=== PATIENT | female | born 1975 | race Caucasian/White ===

== ENCOUNTER → 2019-06-28 14:46 | Outpatient (BNVA) | payer OTHER, SELFPAY | PROVIDERS: Family Provider Nurse Practitioner; PCP Nurse Practitioner; Visit Provider Nurse Practitioner Psychiatric/Mental Health | DX: Z79.899 Other long term (current) drug therapy (principal); F31.81 Bipolar II disorder; F43.12 Post-traumatic stress disorder, chronic; F41.1 Generalized anxiety disorder; F17.210 Nicotine dependence, cigarettes, uncomplicated; Z63.4 Disappearance and death of family member | CPT/HCPCS: 80053; 80061; 85025 ==

== ENCOUNTER → 2019-08-10 16:13 | Outpatient (BNVA) | payer BC, SELFPAY | PROVIDERS: Family Provider Nurse Practitioner; PCP Nurse Practitioner; Visit Provider Nurse Practitioner | DX: R50.9 Fever, unspecified (principal) | CPT/HCPCS: 87400 ==

== ENCOUNTER → 2019-10-24 09:23 | Outpatient (BNVA) | payer SELFPAY | PROVIDERS: Family Provider Nurse Practitioner; PCP Nurse Practitioner; Visit Provider Nurse Practitioner | DX: M54.5 Low back pain (principal); M79.605 Pain in left leg | CPT/HCPCS: 81000 ==

== ENCOUNTER → 2019-11-14 10:58 | Outpatient (BNVA) | payer SELFPAY | PROVIDERS: Family Provider Nurse Practitioner; PCP Nurse Practitioner; Visit Provider Nurse Practitioner Psychiatric/Mental Health | DX: F31.81 Bipolar II disorder (principal); F43.12 Post-traumatic stress disorder, chronic; F41.1 Generalized anxiety disorder; F17.210 Nicotine dependence, cigarettes, uncomplicated; Z63.4 Disappearance and death of family member | CPT/HCPCS: 99214 ==

== ENCOUNTER → 2020-02-02 11:33 | Outpatient (BNVA) | payer BC, SELFPAY | PROVIDERS: Family Provider Nurse Practitioner; PCP Nurse Practitioner; Visit Provider Nurse Practitioner Family | DX: Z11.59 Encounter for screening for other viral diseases (principal); J06.9 Acute upper respiratory infection, unspecified | CPT/HCPCS: 87635 ==

== ENCOUNTER → 2020-04-25 11:31 | Outpatient (BNVA) | payer BC, SELFPAY | PROVIDERS: Family Provider Nurse Practitioner; PCP Nurse Practitioner; Visit Provider Nurse Practitioner Family | DX: Z11.59 Encounter for screening for other viral diseases (principal); J98.8 Other specified respiratory disorders | CPT/HCPCS: 87635 ==

== ENCOUNTER → 2021-01-09 14:36 | Outpatient (BNVA) | payer OTHER, SELFPAY | PROVIDERS: Family Provider Nurse Practitioner; PCP Nurse Practitioner; Visit Provider Nurse Practitioner Family | DX: Z20.822 Contact with and (suspected) exposure to COVID-19 (principal); Z11.52 Encounter for screening for COVID-19; Z11.59 Encounter for screening for other viral diseases | CPT/HCPCS: 87635 ==

== ENCOUNTER → 2021-03-28 00:01 | Outpatient (BNVA) | payer OTHER, SELFPAY | PROVIDERS: Family Provider Nurse Practitioner; PCP Nurse Practitioner; Visit Provider Surgery | DX: Z01.812 Encounter for preprocedural laboratory examination (principal); Z20.822 Contact with and (suspected) exposure to COVID-19 | CPT/HCPCS: 87635 ==

== ENCOUNTER 2021-04-03 09:27 | Day surgery (SDC) | payer SELFPAY ==
[2021-03-31 13:47] VITALS: BMI 39.6
[2021-04-03 10:08] VITALS: BP 123/90; PULSE 83; RESP 18; TEMP 36.1; O2SAT 98
[2021-04-03] MEDS: sodium chloride 0.9% 1,000 ML 30 ML IV (10:16)
--- NOTE | 2021-04-03 10:21 | ANES.PREANE2 ---
Pre-Anesthetic Assessment Pre-Anesthetic Assessment: Height/Weight: Height 1.55 m Weight 95.254 kg Temp Pulse Resp BP Pulse Ox 97 F L 83 18 123/90 98 04/03/21 10:08 04/03/21 10:08 04/03/21 10:08 04/03/21 10:08 04/03/21 10:08 Preop Diagnosis: upper gi symptoms Proposed Procedure: Operation Date: 04/03/21 11:15 Proposed Procedures p EGD 18866 K21.9(Not Applicable) - Moshe Rodriguez MD Was Clonidine taken within 24 hours: N/A Last intake: Intake Last Liquid Date 04/02/21 Last Liquid Time 22:00 Last Solid Date 04/02/21 Last Solid Time 19:00 Social: Social History: Tobacco Exam: Pre-Anes Outpt Exam: alert, oriented x 3, clear to auscultation bilaterally and regular rate & rhythm Airway: Submandibular: WNL Cervical ROM: WNL MP: 3 Dentition: False History/ROS: No significant complaints Metabolic: Metabolic: Morbid obesity Comments: BMI 39 Neuropsych: Neuropsych: Anxiety and Bipolar Anesthetic Plan: ASA status: 3 Anesthesia: Anesthesia Evaluation and MAC Risk of > 500 ml blood loss (7ml/kg in children): No Meds/Allergies Current Medications: Current Medications Generic Name Dose Route Start Last Admin Trade Name Freq PRN Reason Stop Dose Admin Sodium Chloride 1,000 mls @ 30 ml s/hr 04/03/21 10:00 04/03/21 10:16 Sodium Chloride 0.9% IV 04/04/21 09:59 30 mls/hr .Q24H LOREN Administration PFSH Anesthesia PFSH: Medical History (Updated 02/26/21 @ 11:12 by Bethany Beckwith) Bipolar II disorder Chronic post-traumatic stress disorder Dyslipidemia Fatigue Gastroesophageal reflux disease Generalized anxiety disorder Psychiatric care Surgical History History of vaginal hysterectomy 2009 S/P appendectomy 2000 S/P cholecystectomy 2000 S/P coronary angiogram 2018 S/P tubal ligation Status post section Family History Other Breast cancer Cervical cancer Diabetes Hypothyroid Lung cancer Ovarian cancer Seizure Social History Quit status (tobacco): not considering quitting Second hand smoke exposure: No Smoking risk assessment/counseling performed?: Yes Alcohol intake: never Desire information about alcohol rehabilitation?: No Counseling given: No Desire information about substance/drug rehabilitation?: No Counseling given: No Caregiver/support person: No Lives independently: Yes Household members: spouse Marital status: Current occupational status: employed Current occupation: [employer] History of recent travel: No Current gender identity: Female Data Anesthesia Cardiac Studies: No Data to Display
--- NOTE | 2021-04-03 11:11 | W.PM.OPSFHP ---
Same Day Surgery H&P Indication for Procedure/HPI DATE OF PROCEDURE: April 03, 2021 CHIEF COMPLAINT/INDICATIONFOR SURGICAL PROCEDURE: egd PREOP DIAGNOSIS: upper gi symptoms PLANNED PROCEDRUE: Operation Date: 04/03/21 11:15 Proposed Procedures p EGD 87733 K21.9(Not Applicable) - Moshe Rordiguez MD Medications/Allergies* Home Medications Medication Instructions Recorded Confirmed Type albuterol sulfate 90 mcg/actuation 90 g INHALATION DAILY 10/24/19 04/03/21 History aerosol inhaler loratadine 10 mg tablet 10 mg PO DAILY 10/24/19 04/03/21 History cholecalciferol (vitamin D3) 1,250 5,000 mcg PO DAILY cap 11/26/20 04/03/21 History mcg (50,000 unit) capsule Allergies/Adverse Reactions Allergy/AdvReac Type Severity Reaction Status Date / Time acetaminophen Allergy ADR-Abdominal Verified 04/03/21 10:01 Pain aspirin Allergy ADR-Abdominal Verified 04/03/21 10:01 Pain codeine Allergy ADR-Abdominal Verified 04/03/21 10:01 Pain egg Allergy ADR-Diarrhe Verified 04/03/21 10:01 a latex Allergy ALGY-Bliste Verified 04/03/21 10:01 r morphine Allergy ADR-Vomitin Verified 04/03/21 10:01 g tramadol Allergy ADR-Vomitin Verified 04/03/21 10:01 g Current Medications: Generic Name Dose Route Start Last Admin Trade Name Freq PRN Reason Stop Dose Admin Sodium Chloride 1,000 mls @ 30 mls/hr 04/03/21 10:00 04/03/21 10:16 Sodium Chloride 0.9% IV 04/04/21 09:59 30 mls/hr .Q24H LOREN Administration Pertinent History/Comorbid Conditions* Medical History (Updated 02/26/21 @ 11:12 by Bethany Beckwith) Bipolar II disorder Chronic post-traumatic stress disorder Dyslipidemia Fatigue Gastroesophageal reflux disease Generalized anxiety disorder Psychiatric care Surgical History (Updated 08/13/19 @ 14:14 by TRISTAN Price) History of vaginal hysterectomy 2009 S/P appendectomy 2001 S/P cholecystectomy 2001 S/P coronary angiogram 2018 S/P tubal ligation Status post section Family History (Updated 08/13/19 @ 14:16 by Glennette R Ann-Marie, TECHNICAL STAFF ASSISTANT-C) Cervical cancer Ovarian cancer Diabetes Hypothyroid Breast cancer Seizure Lung cancer Social History Quit status (tobacco): not considering quitting Second hand smoke exposure: No Smoking risk assessment/counseling performed?: Yes Alcohol intake: never Desire information about alcohol rehabilitation?: No Counseling given: No Desire information about substance/drug rehabilitation?: No Counseling given: No Caregiver/support person: No Lives independently: Yes Household members: spouse Marital status: Current occupational status: employed Current occupation: [employer] History of recent travel: No Current gender identity: Female Pertinent Exam Findings alert, oriented x 3 and regular rate & rhythm Recommendations Surgery/Procedure today Coding Level of Care Code Acute Industrial Pharmacist for Trinh Bales
[2021-04-03 11:50] VITALS: BP 141/91; PULSE 85; RESP 16; TEMP 36.1; O2SAT 99
[2021-04-03 12:06] VITALS: BP 123/92; PULSE 74; RESP 18; O2SAT 97
--- NOTE | 2021-04-03 12:36 | PC.NURSE ---
protonix called to [facility] a40 gena bid #[phone] with 3 refills.
--- NOTE | 2021-04-03 15:29 | ANE.PACU2 ---
Inpatient post-anesthesia follow up: Airway intact: Yes Vital signs: Temperature 97 F Pulse Rate 74 Respiratory Rate 18 Blood Pressure 123/92 Pulse Oximetry 97 Oxygen Delivery Me thod Room Air Oxygen Flow Rate 2 Fraction of Inspir ed Oxygen Hydration adequate: Yes Nausea and vomiting: No Pain level: 1 Mental status: Baseline
== END 2021-04-03 12:35 | disposition home or self-care (01) ==
PROVIDERS: PCP Nurse Practitioner; Visit Provider Surgery
PROC: 0DJ08ZZ Inspection of Upper Intestinal Tract, Via Natural or Artificial Opening Endoscopic (ICD-10-PCS; CPT 43235; principal; 2021-04-03 11:15)
DX: R10.12 Left upper quadrant pain (principal); R11.0 Nausea; K20.90 Esophagitis, unspecified without bleeding; K29.50 Unspecified chronic gastritis without bleeding; E66.01 Morbid (severe) obesity due to excess calories; Z68.39 Body mass index [BMI] 39.0-39.9, adult; E78.5 Hyperlipidemia, unspecified; F17.200 Nicotine dependence, unspecified, uncomplicated; Z80.3 Family history of malignant neoplasm of breast; Z80.8 Family history of malignant neoplasm of other organs or systems
CPT/HCPCS: 43239; 88305; 96360; 96361; J2704; J7030

== ENCOUNTER → 2022-01-09 11:52 | Outpatient (BNVA) | payer SELFPAY | PROVIDERS: PCP Nurse Practitioner; Visit Provider Family Medicine | DX: I10 Essential (primary) hypertension (principal); K21.9 Gastro-esophageal reflux disease without esophagitis; E78.5 Hyperlipidemia, unspecified; R53.83 Other fatigue | CPT/HCPCS: 80053; 80061; 83036; 83721 ==

== ENCOUNTER → 2022-08-24 10:07 | Outpatient (BNVA) | payer OTHER, SELFPAY | PROVIDERS: PCP Family Medicine; Visit Provider Nurse Practitioner | DX: I10 Essential (primary) hypertension (principal); Z79.899 Other long term (current) drug therapy | CPT/HCPCS: 80053; 80061; 83036; 83721; 84439; 84443; 84481; 85025 ==

== ENCOUNTER → 2022-08-26 10:00 | Outpatient (BNVA) | payer OTHER, SELFPAY | PROVIDERS: PCP Family Medicine; Visit Provider Family Medicine | DX: I10 Essential (primary) hypertension (principal); R05.9 Cough, unspecified; F17.210 Nicotine dependence, cigarettes, uncomplicated; M54.50 Low back pain, unspecified; M79.606 Pain in leg, unspecified; M51.37 Other intervertebral disc degeneration, lumbosacral region | CPT/HCPCS: 71046; 72100 ==

== ENCOUNTER 2022-10-13 09:10 | Outpatient (CLI) | payer OTHER, SELFPAY ==
--- NOTE | 2022-10-13 09:20 | MM_ITS ---
WS: [id number] SCREENING DIGITAL BREAST TOMOSYNTHESIS MAMMOGRAM WITH CAD HISTORY: Z12.39 - Encounter for other screening for malignant neoplasm... COMPARISON: None available. Bilateral CC and MLO with tomosynthesis and synthetic mammography submitted. Computer aided detection analyzed. Breast composition: There are scattered areas of fibroglandular density. Asymmetric soft tissue in th e upper outer quadrant of the RIGHT breast. There are additional multiple scattered nodules throughou t the breast which are probably lymph nodes. No calcifications or distortion. MM/[place] [id number] IMPRESSION: BI-RADS: 0-Incomplete: Need additional imaging evaluation FOLLOW UP: Need Additional Imaging RIGHT breast: Spot compression views (CC and MLO). True ML. Ultrasound to follo w if abnormality persists.
== END 2022-10-13 09:11 | disposition home or self-care (01) ==
LOC: RAD 09:14
PROVIDERS: PCP Family Medicine; Visit Provider Nurse Practitioner
DX: Z12.31 Encounter for screening mammogram for malignant neoplasm of breast (principal)
CPT/HCPCS: 77063; 77067; 80053; 80061; 83036; 83721; 84439; 84443; 84481; 85025

== ENCOUNTER → 2022-11-23 07:55 | Outpatient (BNVA) | payer OTHER, SELFPAY | PROVIDERS: PCP Family Medicine; Visit Provider Nurse Practitioner | DX: E78.2 Mixed hyperlipidemia (principal); E11.65 Type 2 diabetes mellitus with hyperglycemia; E55.9 Vitamin D deficiency, unspecified | CPT/HCPCS: 80053; 80061; 82306; 83036; 84443; 85025 ==

== ENCOUNTER 2023-01-04 09:46 | Outpatient (CLI) | payer OTHER, SELFPAY ==
--- NOTE | 2023-01-04 09:54 | MM_ITS ---
WS: [id number] ADDITIONAL VIEWS RIGHT MAMMOGRAM WITH DIGITAL BREAST TOMOSYNTHESIS. RIGHT BREAST ULTRASOUND HISTORY: ABNORMAL MAMMO COMPARISON: 10/13/2022 RIGHT MAMMOGRAM: Spot compression views and true ML with digital breast tomosynthesis and SM. Patchy asymmetry persists in the upper outer quadrant. There is an additional 6 mm mass just anterior to the asymmetry which may be a lymph node. Ultrasound to follow. RIGHT BREAST ULTRASOUND 2-D and color Doppler imaging submitted. Patchy density in the upper outer quadrant of the right breast at 10:00 is identified. This area lena ures 17 x 13 mm. There are small scattered cysts contained within the mixed echogenetic asymmetry. Fa vor this is benign and I suspect this is benign fibrocystic disease. There is an additional hypoechoi c area which is probably a lymph node at 10:00, 1 cm from the nipple measuring 6 x 9 x 4 mm IMPRESSION: MM/[place] [id number] BI-RADS: 3-Probably Benign FOLLOW UP: 6 Month Follow-up Recommend right breast ultrasound follow-up in 6 months to reevaluate the patch y asymmetries in the upper outer quadrant of the right breast. Favor these are benign findings. As there are no long-term prior studies for comparison 6-month follow-up recommended.
== END 2023-01-04 09:47 | disposition home or self-care (01) ==
PROVIDERS: PCP Family Medicine; Visit Provider Nurse Practitioner
DX: R92.8 Other abnormal and inconclusive findings on diagnostic imaging of breast (principal); N64.89 Other specified disorders of breast
CPT/HCPCS: 76642; 77061; G0279

== ENCOUNTER → 2023-03-02 11:42 | Outpatient (BNVA) | payer OTHER, SELFPAY | PROVIDERS: PCP Family Medicine; Visit Provider Nurse Practitioner | DX: I10 Essential (primary) hypertension | CPT/HCPCS: 80053 ==

== ENCOUNTER → 2023-05-26 11:18 | Outpatient (BNVA) | payer OTHER, SELFPAY | PROVIDERS: PCP Family Medicine; Visit Provider Nurse Practitioner | DX: E11.65 Type 2 diabetes mellitus with hyperglycemia (principal); E55.9 Vitamin D deficiency, unspecified | CPT/HCPCS: 80053; 80061; 82306; 83036; 84443 ==

== ENCOUNTER 2023-07-27 14:26 | Outpatient (CLI) | payer OTHER, SELFPAY ==
--- NOTE | 2023-07-27 15:00 | US_ITS ---
WS: [id number] ULTRASOUND RIGHT BREAST HISTORY: Follow-up complex cystic mass upper outer quadrant 10:00. COMPARISON: 01/04/2023, 10/13/2022 TECHNIQUE: 2-D and Doppler. Reidentified is ill-defined cluster of cysts which are complex cysts in the RIGHT breast at 10:00, 6 cm from the nipple. The entire collection measures 2.0 x 1.0 x 1.6 cm. There is no increased vascular ity. No interval change in size. IMPRESSION: US/US breast RT limited* [id number] BI-RADS: 3-Probably Benign FOLLOW-UP: 6 Month Follow-up Patient to return in 6 months for diagnostic mammogram. At that time additional imaging and ultrasound evaluation of this cluster of cysts in the RIGHT breast should be performed.
== END 2023-07-27 14:27 | disposition home or self-care (01) ==
LOC: RAD 14:29
PROVIDERS: Visit Provider Nurse Practitioner
DX: N60.01 Solitary cyst of right breast (principal)
CPT/HCPCS: 76642

== ENCOUNTER → 2023-08-23 08:59 | Outpatient (BNVA) | payer OTHER, SELFPAY | PROVIDERS: PCP Nurse Practitioner; Visit Provider Nurse Practitioner | DX: L98.9 Disorder of the skin and subcutaneous tissue, unspecified (principal) | CPT/HCPCS: 88305 ==

== ENCOUNTER 2023-11-17 12:44 | Outpatient (CLI) | payer OTHER, SELFPAY ==
--- NOTE | 2023-11-17 12:51 | XR_ITS ---
WS: [id number] Exam: XR lumbar spine 2-3V* [id number] Date/Time of Exam: 11/17/2023 12:59 PM Reason For Exam: M54.9 - Dorsalgia, unspecified Comparison 08/26/2022. Degenerative narrowing of the L5-S1 disc. Mild degenerative anterolisthesis of L4 on L5 of about 5 mm . The remaining discs are preserved. Minimal spondylosis at all levels. Posterior elements are unrema rkable. Slight dextroscoliosis. XR/XR lumbar spine 2-3V* [id number] IMPRESSION: 1. Degenerative disc change and mild degenerative anterolisthesis of L5 on S1 s econdary to facet DJD. Very slight dextroscoliosis.
== END 2023-11-17 12:45 | disposition home or self-care (01) ==
LOC: RAD 12:45
PROVIDERS: PCP Nurse Practitioner; Visit Provider Nurse Practitioner Family
DX: M51.36 Other intervertebral disc degeneration, lumbar region (principal); M54.9 Dorsalgia, unspecified; M54.50 Low back pain, unspecified
CPT/HCPCS: 72100

== ENCOUNTER 2024-01-11 11:10 | Emergency (ER) | payer OTHER, SELFPAY ==
[2024-01-11 11:13] VITALS: BP 180/152; PULSE 100; RESP 24; TEMP 36.5; O2SAT 100
--- NOTE | 2024-01-11 11:22 | ECG_ITS ---
[facility] Test Date: 2024-01-11 Pat Name: Debbie De La Cruz Department: Room: Gender: Female Data Support Analyst: : 1975 Requested By: Jesús Newton Order Number: [id number] Tierney MD: Zarina Hoff M.D. Measurements Intervals [place] Rate: 81 P: 36 WA: 165 QRS: 14 QRSD: 90 T: 58 QT: 376 QTc: 439 Interpretive Statements SINUS RHYTHM Compared to ECG 03/21/2018 12:29:49 Sinus bradycardia no longer present Electronically Signed On 01-11-2024 23:32:02 CDT by Zarina Hoff M.D. [id number]
--- NOTE | 2024-01-11 11:22 | XRR_ITS ---
PROCEDURE INFORMATION: Exam: XR Chest Exam date and time: 01/11/2024 11:27 AM Age: 48 years old Clinical indication: Cough and dyspnea; Patient HX: Lt. Abd pain; Additional info: Dyspnea/cough TECHNIQUE: Imaging protocol: Radiologic exam of the chest. Views: 1 view. COMPARISON: CR XR chest 2V* [id number] 08/26/2022 9:59 AM FINDINGS: Lungs: No infiltrate or edema. Pleural spaces: Unremarkable. No pleural effusion. No pneumothorax. Heart/Mediastinum: Prominent lymph node right hilar region which has been stable comparison to 2019 radiographs. Bones/joints: Unremarkable. XR/XR chest 1V portable [id number] IMPRESSION: No acute findings.
--- NOTE | 2024-01-11 11:36 | W.ED.ABDPA2 ---
HPI - Abdominal Pain General: Chief Complaint: Abdominal Pain Stated Complaint: n/v, left abd pain Time Seen by Provider: 01/11/24 11:21 History of Present Illness: 48-year-old female presents emergency room with left-sided abdominal pain with nausea and vomiting. Started 3 days ago. Also complaining of foul-smelling urine. Severely constipated. No hematochezia or melena. No previous colonoscopy. She was seen this morning by her midlevel she said it reported she had rather foul-smelling urine and midlevel told her should have bladder infection with because she was having nausea and vomiting discharged her earlier advised her to come to the emergency room. Associated Symptoms: Denies chills, dysuria and fever(s) Related Data Home Medications Medication Instructions Recorded Confirmed albuterol sulfate 90 mcg/actuation 90 g inhalation DAILY PRN 10/24/19 01/11/24 aerosol inhaler Shortness Of Breath metoprolol succinate 25 mg 25 mg PO QPM 01/11/24 01/11/24 tablet,extended release 24 hr quetiapine 300 mg tablet (Seroquel) 300 mg PO QAM 01/11/24 01/11/24 Previous Rx's Medication Instructions Recorded pen needle, diabetic 33 gauge x #100 ea 05/26/23 quetiapine 50 mg tablet (Seroquel) 50 mg PO BID PRN severe 10/21/23 anxiety/agitation #60 tabs diltiazem HCl 120 mg 120 mg PO QAM #90 caps 12/07/23 capsule,extended release 24 hr isosorbide mononitrate 10 mg tablet 10 mg PO DAILY #90 tabs 12/07/23 cetirizine 10 mg tablet (Zyrtec) 10 mg PO DAILY #30 tabs 12/14/23 cyclobenzaprine 10 mg tablet 10 mg PO BID PRN muscle spasm #60 12/14/23 tabs fenofibrate nanocrystallized 145 145 mg PO DAILY #30 tabs 12/14/23 mg tablet (Tricor) fluticasone propionate 50 2 spray intranasal DAILY OTC #16 12/14/23 mcg/actuation nasal grams spray,suspension (Flonase Allergy Relief) liraglutide 0.6 mg/0.1 mL (18 mg/3 0.6 mg (0.1 mL) SUBCUT DAILY #9 mL 12/14/23 mL) subcutaneous pen injector (Victoza 3-Calin) metformin 500 mg tablet,extended 1,000 mg (2 x 500 mg) PO DAILY #60 12/14/23 release 24 hr tabs pantoprazole 40 mg tablet,delayed 40 mg PO DAILY #30 tabs 12/14/23 release zonisamide 100 mg capsule 100 mg PO BID #60 caps 12/14/23 (Zonegran) mometasone-formoterol HFA 100 2 puff inhalation Q12H #13 grams 12/15/23 mcg-5 mcg/actuation aerosol inhaler (Dulera) valsartan 40 mg tablet (Diovan) 40 mg PO DAILY #30 tabs 12/15/23 cyproheptadine 4 mg tablet 8 mg (2 x 4 mg) PO BEDTIME #60 tabs 12/16/23 gabapentin 300 mg capsule 300 mg PO TID #90 caps 12/16/23 quetiapine 400 mg tablet (Seroquel) 400 mg PO BEDTIME #30 tabs 12/16/23 cefdinir 300 mg capsule 300 mg PO BID #14 caps 01/11/24 ciprofloxacin HCl 500 mg tablet 500 mg PO BID #20 tabs 01/11/24 lactulose 20 gram/30 mL oral 20 g (30 mL) PO Q2H 24 hours #360 01/11/24 solution mL ondansetron HCl 4 mg tablet 4 mg PO Q6H PRN nausea and 01/11/24 vomiting #20 tabs phenazopyridine 200 mg tablet 200 mg PO TID PRN pain #6 tabs 01/11/24 (Pyridium) polyethylene glycol 3350 17 gram 17 g PO DAILY #100 ea 01/11/24 oral powder packet (Miralax) Allergies Allergy/AdvReac Type Severity Reaction Status Date / Time acetaminophen Allergy ADR-Abdominal Verified 01/11/24 09:38 Pain aspirin Allergy ADR-Abdominal Verified 01/11/24 09:38 Pain codeine Allergy ADR-Abdominal Verified 01/11/24 09:38 Pain egg Allergy ADR-Diarrhe Verified 01/11/24 09:38 a latex Allergy ALGY-Bliste Verified 01/11/24 09:38 r morphine Allergy ADR-Vomitin Verified 01/11/24 09:38 g tramadol Allergy ADR-Vomitin Verified 01/11/24 09:38 g Review of Systems Const: Denies: fever(s) or chills Card: Denies: chest pain Resp: Denies: dyspnea GI: Denies: abdominal pain : Denies: dysuria, urinary frequency or urinary urgency Musc: Denies: neck pain or back pain Skin/Breast: Denies: rash PFSH ED PFSH: Medical History Environmental and seasonal allergies Lumbar degenerative disc disease Hyperlipidemia, mixed Diabetes mellitus with hyperglycemia, without long-term current use of insulin Lumbar pain with radiation down leg Psychiatric care Gastroesophageal reflux disease Dyslipidemia Fatigue Generalized anxiety disorder Chronic post-traumatic stress disorder Bipolar II disorder Surgical History H/O esophagogastroduodenoscopy (04/03/21) History of vaginal hysterectomy 2009 S/P tubal ligation S/P coronary angiogram 2018 S/P appendectomy 2000 S/P cholecystectomy 2001 Status post section Family History Other Breast cancer Cervical cancer Diabetes Hypothyroidism Lung cancer Ovarian cancer Seizure Social History Smoking and tobacco/nicotine status: current every day tobacco/nicotine user cigarettes Packs smoked per day: 1.5 Years cigarettes smoked: 28 Quit status (tobacco/nicotine): not considering quitting Second hand smoke exposure: No Alcohol intake: never Substance/Drug Use: never Caregiver/support person: No Lives independently: Yes Household members: spouse Marital status: Current occupational status: employed Current occupation: [employer] Do you think of yourself as: Straight/Heterosexual Current gender identity: Female Physical Exam Const: COMMON NORMALS: no acute distress GENERAL APPEARANCE: cooperative and comfortable ORIENTATION/CONSCIOUSNESS: Yes awake, Yes oriented to person, Yes oriented to place and Yes oriented to time HENMT: COMMON NORMALS: normocephalic, atraumatic and hearing grossly normal bilaterally HEAD & SCALP: normocephalic and atraumatic Resp: COMMON NORMALS: normal respiratory effort, No retractions, No use of accessory muscles and clear to auscultation bilaterally AUSCULTATION: clear to auscultation bilaterally Cardio: COMMON NORMALS: regular rate, regular rhythm and No murmurs present (Cardio) RATE: regular rate RHYTHM: regular rhythm GI: COMMON NORMALS: Soft to palpation and No hepatosplenomegaly present AUSCULTATION: Yes normoactive bowel sounds PALPATION: Yes Soft to palpation, No Tenderness to palpation present (GI), No Guarding due to palpation present (GI) and Yes No hepatosplenomegaly present Extremity: COMMON NORMALS: normal to inspection, capillary refill normal, no clubbing, cyanosis or edema, no calf tenderness and no pedal edema Neuro: SENSORIUM/ORIENTATION: Yes oriented to person, Yes oriented to place and Yes oriented to time Skin: COMMON NORMALS: no rashes or lesions noted GENERAL SKIN EXAM: no rashes or lesions noted Course Vital Signs: Vital signs: Vital Signs Temperature 97.7 F 01/11/24 11:13 Pulse Rate 87 01/11/24 13:30 Respiratory Rate 16 01/11/24 13:30 Blood Pressure 134/89 01/11/24 13:30 Pulse Oximetry 100 01/11/24 13:30 Oxygen Delivery Me thod Room Air 01/11/24 13:30 MDM - Abdominal Pain Medical Decision Making Labs and imaging reviewed. No leukocytosis normal electrolytes anion gap normal. Glucose is also normal. Urine shows positive nitrites but only 0-5 white blood cells and 0-5 squamous cells. Has not had any vomiting since she is right. She has been given fluids. CT showed significant constipation which I think is causing a lot of her abdominal discomfort possibly causing her nausea and vomiting as well. I discussed with on-call surgeon Dr. Forman he recommends outpatient colonoscopy given there was no mass cited on the CT. Will discharge patient home she was given a dose of Rocephin here advised to start cefdinir 300 mg 1 twice a day beginning tomorrow. Clear liquid diet lactulose 1 dose every 2 hours until desired results achieved also started on MiraLAX prevent constipation. I think her GLP-1 is probably contributing to her constipation issues. Finally we did give her ondansetron to use as needed for nausea vomiting. Medical Records I reviewed the patient's medical records. Lab Data I reviewed the patient's lab results. 01/11/24 11:50 01/11/24 11:50 Labs/Radiology: Radiology Impressions Chest X-Ray 01/11/24 11:22 IMPRESSION: No acute findings. Abdomen/Pelvis CT 01/11/24 11:44 IMPRESSION: 1. Significant increase in fecal material and inspissated fecal material especially within the cecum and RIGHT colon. No focal obstructing mass is identified. There is a change of caliber in the mid transverse colon of the amount of fecal retention. This may all be related to chronic constipation. Colonoscopy may be of benefit in this patient. 2. Prior appendectomy. 3. Prior cholecystectomy. 4. Hepatic steatosis. 5. No free fluid or ascites. 6. Air in the urinary bladder. Probably due to recent instrumentation. Other causes of air in the urinary bladder include fistula and gas producing organisms. Laboratory Results WBC 10.76 10^3/uL (3.29-11.43) 01/11/24 11:50 RBC 4.83 10^6/uL (3.85-5.65) 01/11/24 11:50 Hgb 14.80 g/dL (11.27-16.99) 01/11/24 11:50 Hct 43.6 % (36-47) 01/11/24 11:50 MCV 90.3 fl (85-98) 01/11/24 11:50 MCH 30.6 pg (27-33) 01/11/24 11:50 MCHC 33.9 g/dL (30-55) 01/11/24 11:50 RDW 13.1 % (12.1-15.1) 01/11/24 11:50 Plt Count 345 10^3/cmm (157-399) 01/11/24 11:50 MPV 9.9 fL (7.4-10.4) 01/11/24 11:50 Neut % (Auto) 73.6 % 01/11/24 11:50 Lymph % (Auto) 17.5 % 01/11/24 11:50 [place] % (Auto) 5.1 % 01/11/24 11:50 Eos % (Auto) 2.4 % 01/11/24 11:50 Baso % (Auto) 1.0 % 01/11/24 11:50 Neut # (Auto) 7.92 10^3/uL (1.8-7.7) H 01/11/24 11:50 Lymph # (Auto) 1.9 10^3/uL (0.8-4.8) 01/11/24 11:50 [place] # (Auto) 0.6 10^3/uL (0.2-0.9) 01/11/24 11:50 Eos # (Auto) 0.3 10^3/uL (0.0-0.8) 01/11/24 11:50 Baso # (Auto) 0.1 10^3/uL (0.0-0.1) 01/11/24 11:50 Nucleated RBC % (auto) 0 % 01/11/24 11:50 Nucleated RBCs # 0.0 /100WBC 01/11/24 11:50 Sodium 140 mmol/L (136-145) 01/11/24 11:50 Potassium 3.8 mmol/L (3.5-5.1) 01/11/24 11:50 Chloride 105 mmol/L (98-107) 01/11/24 11:50 Carbon Dioxide 20 mmol/L (22-29) L 01/11/24 11:50 Anion Gap 18.8 (5-19) 01/11/24 11:50 BUN 13 mg/dL (6-20) 01/11/24 11:50 Creatinine 1.1 mg/dL (0.5-0.9) H 01/11/24 11:50 GFR Calculation 53.5 mL/min (90-130) L 01/11/24 11:50 Glucose 88 mg/dL (65-115) 01/11/24 11:50 Calculated Osmolality 290 mOsm/kg (285-295) 01/11/24 11:50 Calcium 9.5 mg/dL (8.5-10.5) 01/11/24 11:50 Total Bilirubin 0.3 mg/dL (0.15-1.2) 01/11/24 11:50 AST 21 U/L (0-32) 01/11/24 11:50 ALT 17 U/L (0-33) 01/11/24 11:50 Alkaline Phosphatase 42 U/L (35-105) 01/11/24 11:50 Total Protein 8.0 g/dL (6.6-8.7) 01/11/24 11:50 Albumin 4.8 g/dL (3.5-5.2) 01/11/24 11:50 Globulin 3.2 g/dL (1.3-4.6) 01/11/24 11:50 Lipase 54 U/L (13-60) 01/11/24 11:50 Urine Color Yellow (Yellow) 01/11/24 14:58 Urine Appearance Cloudy (CLEAR) A 01/11/24 14:58 Urine pH 8.0 (5-7) A 01/11/24 14:58 Ur Specific [place] 1.022 (1.005-1.030) 01/11/24 14:58 Urine Protein Trace (Negative) A 01/11/24 14:58 Urine Glucose (UA) Negative (Normal) 01/11/24 14:58 Urine Ketones Negative (Negative) 01/11/24 14:58 Urine Blood Negative (Negative) 01/11/24 14:58 Urine Nitrate Positive (Negative) A 01/11/24 14:58 Urine Bilirubin Negative (Negative) 01/11/24 14:58 Urine Urobilinogen 1.0 mg/dL (Negative) 01/11/24 14:58 Ur Leukocyte Esterase Trace (Negative) A 01/11/24 14:58 Urine RBC 0-2 /hpf (0-2) 01/11/24 14:58 Urine WBC 0-5 /hpf (0-5) 01/11/24 14:58 Ur Squamous Epith Cells 0-5 /hpf (0-5) 01/11/24 14:58 Amorphous Sediment Not Reportable 01/11/24 14:58 Urine Bacteria Exceeds /hpf (NONE) 01/11/24 14:58 Hyaline Casts 1.21 /lpf 01/11/24 14:58 All radiology interpretation(s) finalized by discharge Discharge Plan Discharge Patient Disposition: Home Clinical Impression: Constipation, Cystitis Condition: Stable Prescriptions: New cefdinir 300 mg capsule 300 mg PO BID Qty: 14 0RF lactulose 20 gram/30 mL solution 20 g PO Q2H 1 Days Qty: 360 0RF Rx Instructions: until desired laxative effect Miralax 17 gram powder in packet 17 g PO DAILY Qty: 100 0RF ondansetron HCl 4 mg tablet 4 mg PO Q6H PRN (Reason: nausea and vomiting) Qty: 20 0RF No Action albuterol sulfate 90 mcg/actuation HFA aerosol inhaler 90 g INHALATION DAILY PRN (Reason: Shortness Of Breath) (DME) pen needle, diabetic 33 gauge x 5/32 needle See Rx Instructions .ROUTE .MEDSUPPLY Qty: 100 5RF Rx Instructions: 1 time day zonisamide [Zonegran] 100 mg capsule 100 mg PO BID Qty: 60 2RF cyclobenzaprine 10 mg tablet 10 mg PO BID PRN (Reason: muscle spasm) Qty: 60 2RF cetirizine [Zyrtec] 10 mg tablet 10 mg PO DAILY Qty: 30 2RF fenofibrate nanocrystallized [Tricor] 145 mg tablet 145 mg PO DAILY Qty: 30 2RF fluticasone propionate [Flonase Allergy Relief] 50 mcg/actuation spray,suspension 2 spray INTRANASAL DAILY Qty: 16 0RF Rx Instructions: administer into each nostril liraglutide [Victoza 3-Calin] 0.6 mg/0.1 mL (18 mg/3 mL) pen injector 0.6 mg SUBCUT DAILY Qty: 9 2RF metformin 500 mg tablet extended release 24 hr 1,000 mg PO DAILY Qty: 60 5RF pantoprazole 40 mg tablet,delayed release (DR/EC) 40 mg PO DAILY Qty: 30 5RF valsartan [Diovan] 40 mg tablet 40 mg PO DAILY Qty: 30 2RF Dulera 100-5 mcg/actuation HFA aerosol inhaler 2 puff inhalation Q12H Qty: 13 5RF quetiapine [Seroquel] 50 mg tablet 50 mg PO BID PRN (Reason: severe anxiety/agitation) Qty: 60 6RF gabapentin 300 mg capsule 300 mg PO TID Qty: 90 6RF quetiapine [Seroquel] 400 mg tablet 400 mg PO BEDTIME Qty: 30 6RF cyproheptadine 4 mg tablet 8 mg PO BEDTIME Qty: 60 6RF ciprofloxacin HCl 500 mg tablet 500 mg PO BID Qty: 20 0RF phenazopyridine [Pyridium] 200 mg tablet 200 mg PO TID PRN (Reason: pain) Qty: 6 0RF diltiazem HCl 120 mg capsule,extended release 24hr 120 mg PO QAM Qty: 90 1RF isosorbide mononitrate 10 mg tablet 10 mg PO DAILY Qty: 90 3RF Seroquel 300 mg tablet 300 mg PO QAM metoprolol succinate 25 mg tablet extended release 24 hr 25 mg PO QPM Discharge Orders: Discharge ED (Routine); Ordered 01/11/24 Ordered By: Jesús Harris Referrals: Sydnee Jacobsen, CONTENT EDITOR-C [Primary Care Provider] - Discharge Diet: Clear Liquid Discharge Activity: Increase activity as tolerated Patient Instructions: Constipation (ED), Urinary Tract Infection in Women (ED), Opioid Safety, Pain Management Activity Restrictions/Additional Instructions: Thank you for choosing [facility] for your healthcare needs today. It is very important that you follow up as instructed or that you return to the Emergency Department should you have concerns or if your condition changes or worsens in any way. You are seen emergency room with complaint of abdominal pain CT of the abdomen showed significant amounts of constipation but did not show any other acute findings. Urine did show signs of an infection. You are given a single dose of ceftriaxone here recommend starting the cefdinir tomorrow 300 mg twice a day for 7 days. Also recommend that you start lactulose use 1 dose every 2 hours until desired results achieved to relieve your constipation. Recommend that you have a colonoscopy done to evaluate for the constipation. Case management make arrangements for you to follow-up with general surgery to have a colonoscopy completed. Coding Level of Care Code ED Learning Support Specialist for Trinh Bales
--- NOTE | 2024-01-11 11:44 | CT_ITS ---
WS: [id number] CT ABDOMEN AND PELVIS NONCONTRAST HISTORY: Abdominal pain TECHNIQUE: Imaging performed through the abdomen and pelvis. Coronal and sagittal reformats are submi tted. All CT scans at [facility] use at least one of these dose optimization techniques: auto mated exposure control; mA and/or kV adjustment per patient size (includes targeted exams where dose is matched to clinical indication); or iterative reconstruction. DLP: 717.13 mGy.cm COMPARISON: 08/10/2016 Lower thorax: Lung bases are clear. Visualized heart is normal. No hiatal hernia. Liver: Hepatic steatosis. Mildly enlarged liver. Gallbladder: Prior cholecystectomy. No bile duct dilatation. Pancreas: Normal size and attenuation. Normal pancreatic duct. No pancreatitis or mass. Spleen: Normal. Adrenal glands: Normal. No mass. Right kidney: Normal size kidney with no mass or hydronephrosis. Left kidney: Normal size kidney with no mass or hydronephrosis. Aorta: Normal abdominal aorta, no aneurysm or atherosclerosis. No free fluid, intraperitoneal air or significant lymphadenopathy. GI tract: Nondistended stomach. No small bowel obstruction. Increasing with fecal material in the RIG HT colon. Cecum is deep within the pelvis and is changed position slightly and is more towards the mi dline on the prior study. Constipation. The RIGHT colon to the mid hepatic flexure is markedly disten ded with fecal material. The distal colon is more normal caliber. No obstructing lesion is identified by CT. Abdominal wall: Negative. No hernia. Pelvis: No free fluid. No adenopathy. Small amount of air in the urinary bladder from recent catheter ization or instrumentation most likely. Otherwise fistula or gas producing organisms. Osseous structures: Unremarkable. CT/CT abdomen pelvis wo con [id number] IMPRESSION: 1. Significant increase in fecal material and inspissated fecal material espec ially within the cecum and RIGHT colon. No focal obstructing mass is identified . There is a change of caliber in the mid transverse colon of the amount of fec al retention. This may all be related to chronic constipation. Colonoscopy may be of benefit in this patient. 2. Prior appendectomy. 3. Prior cholecystectomy. 4. Hepatic steatosis. 5. No free fluid or ascites. 6. Air in the urinary bladder. Probably due to recent instrumentation. Other c auses of air in the urinary bladder include fistula and gas producing organisms .
[2024-01-11 12:02] LABS: Basophils # 0.1 10^3/uL (0.0-0.1); Eosinophils # 0.3 10^3/uL (0.0-0.8); Eosinophils % 2.4 %; Hematocrit 43.6 % (36-47); Lymphocytes # 1.9 10^3/uL (0.8-4.8); Lymphocytes % 17.5 %; Mean Corpuscular HGB Conc 33.9 g/dL (30-55); Mean Corpuscular Hemoglobin 30.6 pg (27-33); Mean Corpuscular Volume 90.3 fl (85-98); Mean Platelet Volume 9.9 fL (7.4-10.4); Monocytes # 0.6 10^3/uL (0.2-0.9); Monocytes % 5.1 %; Neutrophils # 7.92 10^3/uL (1.8-7.7); Neutrophils % 73.6 %; Nucleated Red Blood Cells % 0 %; Platelet Count 345 10^3/cmm (157-399); Red Blood Count 4.83 10^6/uL (3.85-5.65); Red Cell Distribution Width 13.1 % (12.1-15.1); White Blood Count 10.76 10^3/uL (3.29-11.43)
[2024-01-11 12:23] LABS: Alanine Aminotransferase 17 U/L (0-33); Albumin Level 4.8 g/dL (3.5-5.2); Alkaline Phosphatase 42 U/L (35-105); Anion Gap 18.8 (5-19); Aspartate Amino Transferase 21 U/L (0-32); Blood Urea Nitrogen 13 mg/dL (6-20); Calcium 9.5 mg/dL (8.5-10.5); Carbon Dioxide 20 mmol/L (22-29); Chloride 105 mmol/L (98-107); Creatinine Clr Calc Pharmacy 62.3579; Globulin 3.2 g/dL (1.3-4.6); Glomerular Filtration Rate 53.5 mL/min (90-130); Glucose 88 mg/dL (65-115); Lipase 54 U/L (13-60); Osmolality Calculated 290 mOsm/kg (285-295); Potassium 3.8 mmol/L (3.5-5.1); Sodium 140 mmol/L (136-145); Total Bilirubin 0.3 mg/dL (0.15-1.2)
[2024-01-11] MEDS: ondansetron 2 mg/ML SDV 2 mL 4 MG IVP (12:53)
[2024-01-11] MEDS: morphine 4 mg/mL SDV 1 mL IVP (12:53)
[2024-01-11] MEDS: sodium chloride 0.9% 1,000 ML 999 ML IV (12:54)
[2024-01-11 13:01] VITALS: BP 137/92; PULSE 94; RESP 18; O2SAT 95
[2024-01-11 13:30] VITALS: BP 134/89; PULSE 87; RESP 16; O2SAT 100
[2024-01-11 15:21] LABS: Charge for UA Resulting for Rev
[2024-01-11 15:24] LABS: Bilirubin Urine Negative (Negative); Blood Urine Negative (Negative); Glucose Urine UA Negative (Normal); Ketones Urine Negative (Negative); Leukocyte Esterase Urine Trace (Negative); Nitrate Urine Positive (Negative); Protein Urine Trace (Negative); Specific Gravity, Urine 1.022 (1.005-1.030); Urine Appearance Cloudy (CLEAR); Urine Color Yellow (Yellow)
[2024-01-11 15:29] LABS: Bacteria Urine EXCEEDS /hpf; Hyaline Casts Urine 1.21 /lpf; RBC Urine 0-2 /hpf (0-2); Squamous Epithelial Cell Urine 0-5 /hpf (0-5); WBC Urine 0-5 /hpf (0-5)
[2024-01-11 15:38] LABS: Add Urine Culture? Yes
[2024-01-11] MEDS: cefTRIAXone 1,000 mg SDV 1000 MG IVP (16:53)
[2024-01-11 17:01] VITALS: BP 134/92; PULSE 89; RESP 16; O2SAT 100
--- NOTE | 2024-01-12 09:08 | DCPLANNER ---
Message sent to General Surgery for follow up-
== END 2024-01-11 17:07 | disposition home or self-care (01) ==
PROVIDERS: Emergency Provider Family Medicine; PCP Nurse Practitioner
DX: K59.00 Constipation, unspecified (principal); N30.90 Cystitis, unspecified without hematuria; Z79.85 Long-term (current) use of injectable non-insulin antidiabetic drugs; Z79.84 Long term (current) use of oral hypoglycemic drugs; F17.210 Nicotine dependence, cigarettes, uncomplicated; E78.2 Mixed hyperlipidemia; E11.9 Type 2 diabetes mellitus without complications; E78.5 Hyperlipidemia, unspecified
CPT/HCPCS: 36415; 71045; 74176; 80053; 81000; 81003; 81015; 83690; 85025; 87077; 87086; 87184; 87186; 93005; 96374; 96375; 99285; J0696; J2270; J2405; J7030

== ENCOUNTER → 2024-01-26 15:14 | Outpatient (BNVA) | payer OTHER, SELFPAY | PROVIDERS: PCP Nurse Practitioner; Visit Provider Nurse Practitioner | DX: E11.65 Type 2 diabetes mellitus with hyperglycemia (principal) | CPT/HCPCS: 81000 ==

== ENCOUNTER → 2024-03-27 15:17 | Outpatient (BNVA) | payer BC, SELFPAY | PROVIDERS: PCP Nurse Practitioner; Visit Provider Nurse Practitioner Family | DX: M25.562 Pain in left knee (principal) | CPT/HCPCS: 73562 ==

== ENCOUNTER 2024-04-12 11:57 | Day surgery (SDC) | payer BC, SELFPAY ==
[2024-04-12 12:50] VITALS: BP 148/98; PULSE 88; RESP 16; TEMP 36.7; O2SAT 97; BMI 36.2
--- NOTE | 2024-04-12 13:11 | P.ANESASSM_ITS ---
Pre-Anesthetic Assessment Height/Weight: Height 1.55 m Weight 87.09 kg Temp Pulse Resp BP Pulse Ox O2 Del Method 98.0 F 88 16 148/98 97 Room Air 04/12/24 12:50 04/12/24 12:50 04/12/24 12:50 04/12/24 12:50 04/12/24 12:50 04/12/24 12:50 Preop Diagnosis: gerd, abdominal pain Operation Date: 04/12/24 13:15 Proposed Procedures p EGD 61947, 16172, G0105, K21.9, R10.9, K92.2(Not Applicable) - Ian Forman DO s Colonoscopy(Not Applicable) - Ian Forman DO Familial anesthetic complications: none Was Beta Brian taken within 24 hours: Yes Was Clonidine taken within 24 hours: N/A Last intake: Intake Last Liquid Date 04/12/24 Last Liquid Time 06:00 Last Solid Date 04/10/24 Last Solid Time 19:30 Social Tobacco (2ppd, smoked at 6am this morning) and No alcohol Exam alert and oriented x 3 Airway Submandibular: within normal limits Cervical ROM: within normal limits Pulmonary Asthma, Chronic Obstructive Pulmonary Disease and Sleep Apnea CV/HEM Hypertension Chronic Renal Insufficiency Hepatic Cirrhosis GI Gastroesophageal Reflux Disease Metabolic Diabetes Mellitus, Hyperlipidemia and Morbid Obesity Musc/[facility] Fibromyalgia, Lower Back Pain and Osteoarthritis/DJD Neuropsych Anxiety and Bipolar PTSD Anesthetic Plan ASA status: 3 Anesthesia: Anesthesia Evaluation and MAC Risk of > 500 ml blood loss (7ml/kg in children): No Medications/Allergies Home Medications Medication Instructions Recorded Confirmed Last Taken Type albuterol sulfate 90 mcg/actuation 90 g inhalation DAILY PRN 10/24/19 04/12/24 04/11/24 History aerosol inhaler Shortness Of Breath pen needle, diabetic 33 gauge x #100 ea 05/26/23 04/10/24 Unknown Rx cetirizine 10 mg tablet (Zyrtec) 10 mg PO DAILY #30 tabs 12/14/23 04/12/24 04/10/24 Rx cyclobenzaprine 10 mg tablet 10 mg PO BID PRN muscle spasm #60 12/14/23 04/12/24 04/10/24 Rx tabs fluticasone propionate 50 2 spray intranasal DAILY OTC #16 12/14/23 04/12/24 04/12/24 Rx mcg/actuation nasal grams spray,suspension (Flonase Allergy Relief) metformin 500 mg tablet,extended 1,000 mg (2 x 500 mg) PO DAILY #60 12/14/23 04/12/24 04/11/24 09:00 Rx release 24 hr tabs pantoprazole 40 mg tablet,delayed 40 mg PO DAILY #30 tabs 12/14/23 04/10/24 04/10/24 Rx release mometasone-formoterol HFA 100 2 puff inhalation Q12H #13 grams 12/15/23 04/10/24 04/10/24 Rx mcg-5 mcg/actuation aerosol inhaler (Dulera) valsartan 40 mg tablet (Diovan) 40 mg PO DAILY #30 tabs 12/15/23 04/10/24 04/10/24 Rx gabapentin 300 mg capsule 300 mg PO TID #90 caps 12/16/23 04/12/24 04/12/24 Rx ondansetron HCl 4 mg tablet 4 mg PO Q6H PRN nausea and 01/11/24 04/10/24 Unknown Rx vomiting #20 tabs phenazopyridine 200 mg tablet 200 mg PO TID PRN pain #6 tabs 01/11/24 04/10/24 Unknown Rx (Pyridium) linaclotide 290 mcg capsule 290 mcg PO DAILY 1 month #30 caps 02/21/24 04/12/24 04/12/24 Rx (Linzess) diltiazem HCl 120 mg 120 mg PO QAM #90 caps 03/20/24 04/12/24 04/12/24 Rx capsule,extended release 24 hr isosorbide mononitrate 10 mg tablet 10 mg PO DAILY #90 tabs 03/20/24 04/12/24 04/11/24 Rx metoprolol succinate 25 mg 25 mg PO QPM #90 tabs 03/20/24 04/10/24 04/10/24 Rx tablet,extended release 24 hr prednisone 10 mg tablets in a dose See Rx Instructions PO PER PKG DIR 03/28/24 04/10/24 04/10/24 Rx pack #21 ea fenofibrate nanocrystallized 145 145 mg PO DAILY #30 tabs 03/29/24 04/12/24 04/12/24 Rx mg tablet (Tricor) zonisamide 100 mg capsule 100 mg PO BID #60 caps 03/29/24 04/10/24 Unknown Rx (Zonegran) cyproheptadine 4 mg tablet 8 mg (2 x 4 mg) PO BEDTIME #60 tabs 04/07/24 04/12/24 04/11/24 Rx quetiapine 300 mg tablet (Seroquel) 300 mg PO QAM #30 tabs 04/07/24 04/10/24 04/10/24 Rx quetiapine 400 mg tablet (Seroquel) 400 mg PO BEDTIME #30 tabs 04/07/24 04/10/24 04/10/24 Rx quetiapine 50 mg tablet (Seroquel) 50 mg PO BID PRN severe 04/12/24 Unknown Rx anxiety/agitation #60 tabs Allergies Allergy/AdvReac Type Severity Reaction Status Date / Time codeine Allergy Severe ALGY-Hives Verified 04/07/24 15:21 Opioids - Morphine Analogues Allergy Severe ALGY-Hives Verified 04/07/24 15:21 tramadol Allergy Severe ALGY-Hives Verified 04/07/24 15:21 acetaminophen Allergy ADR-Abdominal Verified 04/07/24 15:21 Pain aspirin Allergy ADR-Abdominal Verified 04/07/24 15:21 Pain egg Allergy ADR-Diarrhe Verified 04/07/24 15:21 a latex Allergy ALGY-Bliste Verified 04/07/24 15:21 r [facility] Anesthesia Medical History Environmental and seasonal allergies Lumbar degenerative disc disease Hyperlipidemia, mixed Diabetes mellitus with hyperglycemia, without long-term current use of insulin Lumbar pain with radiation down leg Psychiatric care Gastroesophageal reflux disease Dyslipidemia Fatigue Generalized anxiety disorder Chronic post-traumatic stress disorder Bipolar II disorder Surgical History H/O esophagogastroduodenoscopy (04/03/21) History of vaginal hysterectomy 2008 S/P tubal ligation S/P coronary angiogram 2018 S/P appendectomy 2000 S/P cholecystectomy 2000 Status post section Family History Other Breast cancer Cervical cancer Diabetes Hypothyroidism Lung cancer Ovarian cancer Seizure Social History Smoking and tobacco/nicotine status: never used tobacco/nicotine Quit status (tobacco/nicotine): not considering quitting Second hand smoke exposure: No Alcohol intake: never Substance/Drug Use: never Caregiver/support person: No Lives independently: Yes Household members: spouse Marital status: Current occupational status: employed Current occupation: [employer] Do you think of yourself as: Straight/Heterosexual Current gender identity: Female Data Anesthesia Cardiac Studies: No Data to Display
[2024-04-12] MEDS: sodium chloride 0.9% 1,000 ML 30 ML IV (13:16)
--- NOTE | 2024-04-12 13:40 | PM.HP ---
Providers/Chief Complaint Primary Care Provider: TRISTAN Price Chief Complaint: K21.9 History of Present Illness Debbie De La Cruz is a 48 year old female Review of Systems General: Reports: 10 or more systems reviewed and unremarkable except in HPI and below Medications/Allergies Home Medications Medication Instructions Recorded Confirmed Last Taken Type albuterol sulfate 90 mcg/actuation 90 g inhalation DAILY PRN 10/24/19 04/12/24 04/11/24 History aerosol inhaler Shortness Of Breath pen needle, diabetic 33 gauge x #100 ea 05/26/23 04/10/24 Unknown Rx cetirizine 10 mg tablet (Zyrtec) 10 mg PO DAILY #30 tabs 12/14/23 04/12/24 04/10/24 Rx cyclobenzaprine 10 mg tablet 10 mg PO BID PRN muscle spasm #60 12/14/23 04/12/24 04/10/24 Rx tabs fluticasone propionate 50 2 spray intranasal DAILY OTC #16 12/14/23 04/12/24 04/12/24 Rx mcg/actuation nasal grams spray,suspension (Flonase Allergy Relief) metformin 500 mg tablet,extended 1,000 mg (2 x 500 mg) PO DAILY #60 12/14/23 04/12/24 04/11/24 09:00 Rx release 24 hr tabs pantoprazole 40 mg tablet,delayed 40 mg PO DAILY #30 tabs 12/14/23 04/10/24 04/10/24 Rx release mometasone-formoterol HFA 100 2 puff inhalation Q12H #13 grams 12/15/23 04/10/24 04/10/24 Rx mcg-5 mcg/actuation aerosol inhaler (Dulera) valsartan 40 mg tablet (Diovan) 40 mg PO DAILY #30 tabs 12/15/23 04/10/24 04/10/24 Rx gabapentin 300 mg capsule 300 mg PO TID #90 caps 12/16/23 04/12/24 04/12/24 Rx ondansetron HCl 4 mg tablet 4 mg PO Q6H PRN nausea and 01/11/24 04/10/24 Unknown Rx vomiting #20 tabs phenazopyridine 200 mg tablet 200 mg PO TID PRN pain #6 tabs 01/11/24 04/10/24 Unknown Rx (Pyridium) linaclotide 290 mcg capsule 290 mcg PO DAILY 1 month #30 caps 02/21/24 04/12/24 04/12/24 Rx (Linzess) diltiazem HCl 120 mg 120 mg PO QAM #90 caps 03/20/24 04/12/24 04/12/24 Rx capsule,extended release 24 hr isosorbide mononitrate 10 mg tablet 10 mg PO DAILY #90 tabs 03/20/24 04/12/24 04/11/24 Rx metoprolol succinate 25 mg 25 mg PO QPM #90 tabs 03/20/24 04/10/24 04/10/24 Rx tablet,extended release 24 hr prednisone 10 mg tablets in a dose See Rx Instructions PO PER PKG DIR 03/28/24 04/10/24 04/10/24 Rx pack #21 ea fenofibrate nanocrystallized 145 145 mg PO DAILY #30 tabs 03/29/24 04/12/24 04/12/24 Rx mg tablet (Tricor) zonisamide 100 mg capsule 100 mg PO BID #60 caps 03/29/24 04/10/24 Unknown Rx (Zonegran) cyproheptadine 4 mg tablet 8 mg (2 x 4 mg) PO BEDTIME #60 tabs 04/07/24 04/12/24 04/11/24 Rx quetiapine 300 mg tablet (Seroquel) 300 mg PO QAM #30 tabs 04/07/24 04/10/24 04/10/24 Rx quetiapine 400 mg tablet (Seroquel) 400 mg PO BEDTIME #30 tabs 04/07/24 04/10/24 04/10/24 Rx quetiapine 50 mg tablet (Seroquel) 50 mg PO BID PRN severe 04/12/24 Unknown Rx anxiety/agitation #60 tabs Allergies Allergy/AdvReac Type Severity Reaction Status Date / Time codeine Allergy Severe ALGY-Hives Verified 04/07/24 15:21 Opioids - Morphine Analogues Allergy Severe ALGY-Hives Verified 04/07/24 15:21 tramadol Allergy Severe ALGY-Hives Verified 04/07/24 15:21 acetaminophen Allergy ADR-Abdominal Verified 04/07/24 15:21 Pain aspirin Allergy ADR-Abdominal Verified 04/07/24 15:21 Pain egg Allergy ADR-Diarrhe Verified 04/07/24 15:21 a latex Allergy ALGY-Bliste Verified 04/07/24 15:21 r PFSH Acute PFSH: Medical History Environmental and seasonal allergies Lumbar degenerative disc disease Hyperlipidemia, mixed Diabetes mellitus with hyperglycemia, without long-term current use of insulin Lumbar pain with radiation down leg Psychiatric care Gastroesophageal reflux disease Dyslipidemia Fatigue Generalized anxiety disorder Chronic post-traumatic stress disorder Bipolar II disorder Surgical History H/O esophagogastroduodenoscopy (04/03/21) History of vaginal hysterectomy 2008 S/P tubal ligation S/P coronary angiogram 2017 S/P appendectomy 2000 S/P cholecystectomy 2001 Status post section Family History Other Breast cancer Cervical cancer Diabetes Hypothyroidism Lung cancer Ovarian cancer Seizure Social History Smoking and tobacco/nicotine status: never used tobacco/nicotine Quit status (tobacco/nicotine): not considering quitting Second hand smoke exposure: No Alcohol intake: never Substance/Drug Use: never Caregiver/support person: No Lives independently: Yes Household members: spouse Marital status: Current occupational status: employed Current occupation: [employer] Do you think of yourself as: Straight/Heterosexual Current gender identity: Female Vitals/I&O/Wt Last Vital Signs Temp 98.0 F 04/12/24 12:50 Pulse 88 04/12/24 12:50 Resp 16 04/12/24 12:50 BP 148/98 04/12/24 12:50 Pulse Ox 97 04/12/24 12:50 O2 Del Method Room Air 04/12/24 12:50 Weight last 48 hrs Weight 192 lb A&P Assessment and plan (1) Gastroesophageal reflux disease: Qualifiers: Esophagitis presence: without esophagitis Qualified Code(s): K21.9 - Gastro-esophageal reflux disease without esophagitis (2) GI bleed: Plan EGD and colonoscopy Attestations Medical Necessity Statement*: Home Coding Level of Care Code Acute Code for Chg Fwd Diagnoses Gastroesophageal reflux disease without esophagitis K21.9 Esophagitis presence: without esophagitis GI bleed K92.2
[2024-04-12 13:47] LABS: Glucose Point of Care 85 mg/dL (70-110)
[2024-04-12 14:08] VITALS: BP 156/114; PULSE 78; RESP 18; TEMP 36.1; O2SAT 95
[2024-04-12 14:23] VITALS: BP 139/97; PULSE 86; RESP 18; O2SAT 98
--- NOTE | 2024-04-12 14:59 | ANE.PACU2 ---
Inpatient post-anesthesia follow up: Airway intact: Yes Vital signs: Temperature 97.0 F Pulse Rate 86 Respiratory Rate 18 Blood Pressure 139/97 Pulse Oximetry 98 Oxygen Delivery Me thod Room Air Oxygen Flow Rate Fraction of Inspir ed Oxygen Hydration adequate: Yes Nausea and vomiting: No Pain level: 1 Mental status: Baseline
== END 2024-04-12 14:45 | disposition home or self-care (01) ==
PROVIDERS: PCP Nurse Practitioner; Visit Provider Surgery
PROC: 0DJ08ZZ Inspection of Upper Intestinal Tract, Via Natural or Artificial Opening Endoscopic (ICD-10-PCS; CPT 43235; principal; 2024-04-12 13:15)
PROC: 0DJD8ZZ Inspection of Lower Intestinal Tract, Via Natural or Artificial Opening Endoscopic (ICD-10-PCS; CPT 45330; 2024-04-12 13:15)
DX: K92.2 Gastrointestinal hemorrhage, unspecified (principal); K21.9 Gastro-esophageal reflux disease without esophagitis; K29.50 Unspecified chronic gastritis without bleeding; F17.210 Nicotine dependence, cigarettes, uncomplicated; J44.9 Chronic obstructive pulmonary disease, unspecified; G47.30 Sleep apnea, unspecified; I10 Essential (primary) hypertension; E78.5 Hyperlipidemia, unspecified; E66.01 Morbid (severe) obesity due to excess calories; Z68.36 Body mass index [BMI] 36.0-36.9, adult; M79.7 Fibromyalgia; E11.65 Type 2 diabetes mellitus with hyperglycemia
CPT/HCPCS: 36416; 43239; 45330; 82962; 88305; 88342; J2704; J7030

== ENCOUNTER → 2024-04-24 15:19 | Outpatient (BNVA) | payer BC, SELFPAY | PROVIDERS: PCP Nurse Practitioner; Visit Provider Specialist | DX: M25.562 Pain in left knee (principal) | CPT/HCPCS: 73560; 73565 ==

== ENCOUNTER 2024-05-03 12:07 | Day surgery (SDC) | payer BC, SELFPAY ==
[2024-05-03 13:05] VITALS: BP 130/85; PULSE 84; RESP 18; TEMP 36.3; O2SAT 96; BMI 34.9
[2024-05-03] MEDS: sodium chloride 0.9% 500 ML 15 ML IV (13:13)
[2024-05-03 13:26] LABS: Glucose Point of Care 81 mg/dL (70-110)
--- NOTE | 2024-05-03 14:15 | ANES.PREANE2 ---
Pre-Anesthetic Assessment Height/Weight: Height 5 ft 2 in Weight 191 lb Temp Pulse Resp BP Pulse Ox O2 Del Method 97.3 F L 84 18 130/85 96 Room Air 05/03/24 13:05 05/03/24 13:05 05/03/24 13:05 05/03/24 13:05 05/03/24 13:05 05/03/24 13:05 Preop Diagnosis: Screening colonoscopy Operation Date: 05/03/24 13:15 Proposed Procedures p Colonoscopy(Not Applicable) - Ian Forman, DO Was Beta Brian taken within 24 hours: N/A Was Clonidine taken within 24 hours: N/A Last intake: Intake Last Liquid Date 05/02/24 Last Liquid Time 22:00 Last Solid Date 04/30/24 Last Solid Time 08:00 Social Tobacco and No alcohol Exam alert, oriented x 3 and regular rate & rhythm Airway Submandibular: within normal limits Cervical ROM: within normal limits Mallampati: Class II Dentition: false Anesthetic Plan ASA status: 3 Anesthesia: MAC Other: No prior issues with anesthesia, field prep on previous colonoscopy Completed bowel prep Current smoker, 2 packs/day COPD and sleep apnea Type 2 diabetes on metformin Hypertension on metoprolol GERD on Protonix Plan for MAC anesthetic Medications/Allergies Home Medications Medication Instructions Recorded Confirmed Last Taken Type albuterol sulfate 90 mcg/actuation 90 g inhalation DAILY PRN 10/24/19 05/01/24 04/28/24 History aerosol inhaler Shortness Of Breath pen needle, diabetic 33 gauge x #100 ea 05/26/23 04/24/24 Unknown Rx cetirizine 10 mg tablet (Zyrtec) 10 mg PO DAILY #30 tabs 12/14/23 05/01/24 05/01/24 Rx fluticasone propionate 50 2 spray intranasal DAILY OTC #16 12/14/23 05/01/24 05/01/24 Rx mcg/actuation nasal grams spray,suspension (Flonase Allergy Relief) metformin 500 mg tablet,extended 1,000 mg (2 x 500 mg) PO DAILY #60 12/14/23 05/01/24 05/01/24 Rx release 24 hr tabs pantoprazole 40 mg tablet,delayed 40 mg PO DAILY #30 tabs 12/14/23 05/01/24 05/01/24 Rx release mometasone-formoterol HFA 100 2 puff inhalation Q12H #13 grams 12/15/23 05/01/24 04/30/24 Rx mcg-5 mcg/actuation aerosol inhaler (Dulera) valsartan 40 mg tablet (Diovan) 40 mg PO DAILY #30 tabs 12/15/23 05/01/24 05/01/24 Rx gabapentin 300 mg capsule 300 mg PO TID #90 caps 12/16/23 05/01/24 05/01/24 Rx ondansetron HCl 4 mg tablet 4 mg PO Q6H PRN nausea and 01/11/24 05/01/24 Unknown Rx vomiting #20 tabs phenazopyridine 200 mg tablet 200 mg PO TID PRN pain #6 tabs 01/11/24 05/01/24 Unknown Rx (Pyridium) linaclotide 290 mcg capsule 290 mcg PO DAILY 1 month #30 caps 02/21/24 05/01/24 05/01/24 Rx (Linzess) diltiazem HCl 120 mg 120 mg PO QAM #90 caps 03/20/24 05/01/24 05/01/24 Rx capsule,extended release 24 hr metoprolol succinate 25 mg 25 mg PO QPM #90 tabs 03/20/24 05/01/24 04/30/24 Rx tablet,extended release 24 hr fenofibrate nanocrystallized 145 145 mg PO DAILY #30 tabs 03/29/24 05/01/24 05/01/24 Rx mg tablet (Tricor) zonisamide 100 mg capsule 100 mg PO BID #60 caps 03/29/24 05/01/24 05/01/24 Rx (Zonegran) cyproheptadine 4 mg tablet 8 mg (2 x 4 mg) PO BEDTIME #60 tabs 04/07/24 05/01/24 04/30/24 Rx quetiapine 300 mg tablet (Seroquel) 300 mg PO QAM #30 tabs 04/07/24 05/01/24 05/01/24 Rx quetiapine 400 mg tablet (Seroquel) 400 mg PO BEDTIME #30 tabs 04/07/24 05/01/24 04/30/24 Rx quetiapine 50 mg tablet (Seroquel) 50 mg PO BID PRN severe 04/12/24 05/01/24 05/01/24 Rx anxiety/agitation #60 tabs amoxicillin 500 mg-potassium 1 tab PO TID 10 days #30 tabs 04/26/24 05/01/24 05/01/24 Rx clavulanate 125 mg tablet (Augmentin) isosorbide mononitrate 10 mg tablet 10 mg PO BEDTIME 05/02/24 05/02/24 04/30/24 History Allergies Allergy/AdvReac Type Severity Reaction Status Date / Time codeine Allergy Severe ALGY-Hives Verified 05/01/24 10:50 Opioids - Morphine Analogues Allergy Severe ALGY-Hives Verified 05/01/24 10:50 tramadol Allergy Severe ALGY-Hives Verified 05/01/24 10:50 acetaminophen Allergy ADR-Abdominal Verified 05/01/24 10:50 Pain aspirin Allergy ADR-Abdominal Verified 05/01/24 10:50 Pain egg Allergy ADR-Diarrhe Verified 05/01/24 10:50 a latex Allergy ALGY-Bliste Verified 05/01/24 10:50 r Current Medications Generic Name Dose Route Start Last Admin Trade Name Freq PRN Reason Stop Dose Admin Sodium Chloride 500 mls @ 15 mls/hr 05/03/24 12:24 05/03/24 13:13 Sodium Chloride 0.9% IV 05/04/24 12:23 15 mls/hr .Q24H PRN Administration COLONOSCOPY FLUIDS PFSH Anesthesia Medical History Environmental and seasonal allergies Lumbar degenerative disc disease Hyperlipidemia, mixed Diabetes mellitus with hyperglycemia, without long-term current use of insulin Lumbar pain with radiation down leg Psychiatric care Gastroesophageal reflux disease Dyslipidemia Fatigue Generalized anxiety disorder Chronic post-traumatic stress disorder Bipolar II disorder Surgical History H/O esophagogastroduodenoscopy (04/03/21) History of vaginal hysterectomy 2009 S/P tubal ligation S/P coronary angiogram 2017 S/P appendectomy 2000 S/P cholecystectomy 2000 Status post section Family History Other Breast cancer Cervical cancer Diabetes Hypothyroidism Lung cancer Ovarian cancer Seizure Social History Smoking and tobacco/nicotine status: never used tobacco/nicotine Quit status (tobacco/nicotine): not considering quitting Second hand smoke exposure: No Alcohol intake: never Substance/Drug Use: never Caregiver/support person: No Lives independently: Yes Household members: spouse Marital status: Current occupational status: employed Current occupation: [employer] Do you think of yourself as: Straight/Heterosexual Current gender identity: Female Data Anesthesia Cardiac Studies: No Data to Display
--- NOTE | 2024-05-03 14:41 | PM.HP ---
Providers/Chief Complaint Primary Care Provider: TRISTAN Price Chief Complaint: K9.22 History of Present Illness Debbie De La Cruz is a 48 year old female Review of Systems General: Reports: 10 or more systems reviewed and unremarkable except in HPI and below Medications/Allergies Home Medications Medication Instructions Recorded Confirmed Last Taken Type albuterol sulfate 90 mcg/actuation 90 g inhalation DAILY PRN 10/24/19 05/01/24 04/28/24 History aerosol inhaler Shortness Of Breath pen needle, diabetic 33 gauge x #100 ea 05/26/23 04/24/24 Unknown Rx cetirizine 10 mg tablet (Zyrtec) 10 mg PO DAILY #30 tabs 12/14/23 05/01/24 05/01/24 Rx fluticasone propionate 50 2 spray intranasal DAILY OTC #16 12/14/23 05/01/24 05/01/24 Rx mcg/actuation nasal grams spray,suspension (Flonase Allergy Relief) metformin 500 mg tablet,extended 1,000 mg (2 x 500 mg) PO DAILY #60 12/14/23 05/01/24 05/01/24 Rx release 24 hr tabs pantoprazole 40 mg tablet,delayed 40 mg PO DAILY #30 tabs 12/14/23 05/01/24 05/01/24 Rx release mometasone-formoterol HFA 100 2 puff inhalation Q12H #13 grams 12/15/23 05/01/24 04/30/24 Rx mcg-5 mcg/actuation aerosol inhaler (Dulera) valsartan 40 mg tablet (Diovan) 40 mg PO DAILY #30 tabs 12/15/23 05/01/24 05/01/24 Rx gabapentin 300 mg capsule 300 mg PO TID #90 caps 12/16/23 05/01/24 05/01/24 Rx ondansetron HCl 4 mg tablet 4 mg PO Q6H PRN nausea and 01/11/24 05/01/24 Unknown Rx vomiting #20 tabs phenazopyridine 200 mg tablet 200 mg PO TID PRN pain #6 tabs 01/11/24 05/01/24 Unknown Rx (Pyridium) linaclotide 290 mcg capsule 290 mcg PO DAILY 1 month #30 caps 02/21/24 05/01/24 05/01/24 Rx (Linzess) diltiazem HCl 120 mg 120 mg PO QAM #90 caps 03/20/24 05/01/24 05/01/24 Rx capsule,extended release 24 hr metoprolol succinate 25 mg 25 mg PO QPM #90 tabs 03/20/24 05/01/24 04/30/24 Rx tablet,extended release 24 hr fenofibrate nanocrystallized 145 145 mg PO DAILY #30 tabs 03/29/24 05/01/24 05/01/24 Rx mg tablet (Tricor) zonisamide 100 mg capsule 100 mg PO BID #60 caps 03/29/24 05/01/24 05/01/24 Rx (Zonegran) cyproheptadine 4 mg tablet 8 mg (2 x 4 mg) PO BEDTIME #60 tabs 04/07/24 05/01/24 04/30/24 Rx quetiapine 300 mg tablet (Seroquel) 300 mg PO QAM #30 tabs 04/07/24 05/01/24 05/01/24 Rx quetiapine 400 mg tablet (Seroquel) 400 mg PO BEDTIME #30 tabs 04/07/24 05/01/24 04/30/24 Rx quetiapine 50 mg tablet (Seroquel) 50 mg PO BID PRN severe 04/12/24 05/01/24 05/01/24 Rx anxiety/agitation #60 tabs amoxicillin 500 mg-potassium 1 tab PO TID 10 days #30 tabs 04/26/24 05/01/24 05/01/24 Rx clavulanate 125 mg tablet (Augmentin) isosorbide mononitrate 10 mg tablet 10 mg PO BEDTIME 05/02/24 05/02/24 04/30/24 History Allergies Allergy/AdvReac Type Severity Reaction Status Date / Time codeine Allergy Severe ALGY-Hives Verified 05/01/24 10:50 Opioids - Morphine Analogues Allergy Severe ALGY-Hives Verified 05/01/24 10:50 tramadol Allergy Severe ALGY-Hives Verified 05/01/24 10:50 acetaminophen Allergy ADR-Abdominal Verified 05/01/24 10:50 Pain aspirin Allergy ADR-Abdominal Verified 05/01/24 10:50 Pain egg Allergy ADR-Diarrhe Verified 05/01/24 10:50 a latex Allergy ALGY-Bliste Verified 05/01/24 10:50 r PFSH Acute PFSH: Medical History Environmental and seasonal allergies Lumbar degenerative disc disease Hyperlipidemia, mixed Diabetes mellitus with hyperglycemia, without long-term current use of insulin Lumbar pain with radiation down leg Psychiatric care Gastroesophageal reflux disease Dyslipidemia Fatigue Generalized anxiety disorder Chronic post-traumatic stress disorder Bipolar II disorder Surgical History H/O esophagogastroduodenoscopy (04/03/21) History of vaginal hysterectomy 2008 S/P tubal ligation S/P coronary angiogram 2017 S/P appendectomy 2000 S/P cholecystectomy 2000 Status post section Family History Other Breast cancer Cervical cancer Diabetes Hypothyroidism Lung cancer Ovarian cancer Seizure Social History Smoking and tobacco/nicotine status: never used tobacco/nicotine Quit status (tobacco/nicotine): not considering quitting Second hand smoke exposure: No Alcohol intake: never Substance/Drug Use: never Caregiver/support person: No Lives independently: Yes Household members: spouse Marital status: Current occupational status: employed Current occupation: [employer] Do you think of yourself as: Straight/Heterosexual Current gender identity: Female Vitals/I&O/Wt Last Vital Signs Temp 97.3 F L 05/03/24 13:05 Pulse 84 05/03/24 13:05 Resp 18 05/03/24 13:05 BP 130/85 05/03/24 13:05 Pulse Ox 96 05/03/24 13:05 O2 Del Method Room Air 05/03/24 13:05 Weight last 48 hrs Weight 191 lb A&P Assessment and plan (1) GI bleed: (2) Abdominal pain: Plan Diagnostic colonoscopy Attestations Medical Necessity Statement*: Home Coding Level of Care Code Acute Code for Chg Fwd Diagnoses GI bleed K92.2 Abdominal pain R10.9
[2024-05-03 15:05] VITALS: BP 134/96; PULSE 75; RESP 20; O2SAT 95
[2024-05-03] MEDS: ondansetron 2 mg/ML SDV 2 mL 4 MG IVP (15:17)
[2024-05-03 15:20] VITALS: BP 139/93; PULSE 73; RESP 16; O2SAT 98
[2024-05-03 15:30] VITALS: BP 127/87; PULSE 76; RESP 16; O2SAT 98
[2024-05-03 15:44] VITALS: BP 124/84; PULSE 75; RESP 16; O2SAT 100
--- NOTE | 2024-05-03 15:49 | PC.NURSE ---
Pt c/o left upper quadrant pain rated 10/10 then decreased after she passed gas to 7/10. Informed Dr. Forman who stated I am not worried about her, she's fine to go home. Pt stated she is not comfortable farting around people and would rather go home and fart. Vitals within normal limits, see documentation.
--- NOTE | 2024-05-03 16:01 | ANE.PACU2 ---
Inpatient post-anesthesia follow up: Airway intact: Yes Vital signs: Temperature 97.3 F Pulse Rate 75 Respiratory Rate 16 Blood Pressure 124/84 Pulse Oximetry 100 Oxygen Delivery Me thod Room Air Oxygen Flow Rate 4.5 Fraction of Inspir ed Oxygen Hydration adequate: Yes Nausea and vomiting: No Pain level: 1 Mental status: Baseline
== END 2024-05-03 16:01 | disposition home or self-care (01) ==
PROVIDERS: PCP Nurse Practitioner; Visit Provider Surgery
PROC: 0DJD8ZZ Inspection of Lower Intestinal Tract, Via Natural or Artificial Opening Endoscopic (ICD-10-PCS; CPT 45378; principal; 2024-05-03 13:15)
DX: D12.4 Benign neoplasm of descending colon (principal); E78.5 Hyperlipidemia, unspecified; F17.200 Nicotine dependence, unspecified, uncomplicated; J44.9 Chronic obstructive pulmonary disease, unspecified; E11.65 Type 2 diabetes mellitus with hyperglycemia; Z79.84 Long term (current) use of oral hypoglycemic drugs; I10 Essential (primary) hypertension; K21.9 Gastro-esophageal reflux disease without esophagitis
CPT/HCPCS: 36416; 45385; 82962; 88305; J2405; J2704; J7040

== ENCOUNTER → 2024-07-21 15:50 | Outpatient (BNVA) | payer OTHER, SELFPAY | PROVIDERS: PCP Nurse Practitioner; Visit Provider Nurse Practitioner Psychiatric/Mental Health | DX: Z79.899 Other long term (current) drug therapy (principal) | CPT/HCPCS: 80061; 83036 ==

== ENCOUNTER → 2024-08-24 14:44 | Outpatient (BNVA) | payer OTHER, SELFPAY | PROVIDERS: PCP Nurse Practitioner; Visit Provider Nurse Practitioner | DX: E11.65 Type 2 diabetes mellitus with hyperglycemia (principal); E11.9 Type 2 diabetes mellitus without complications | CPT/HCPCS: 80053; 83036 ==

== ENCOUNTER → 2025-01-05 07:57 | Outpatient (BNVA) | payer OTHER, SELFPAY | PROVIDERS: PCP Nurse Practitioner; Visit Provider Internal Medicine | DX: E11.65 Type 2 diabetes mellitus with hyperglycemia (principal); K59.01 Slow transit constipation | CPT/HCPCS: 80053; 80061; 82043; 83036; 84439; 84443; 86376; 86800 ==

== ENCOUNTER → 2025-04-10 15:33 | Outpatient (BNVA) | payer OTHER, SELFPAY | PROVIDERS: PCP Nurse Practitioner; Visit Provider Nurse Practitioner | DX: N18.31 Chronic kidney disease, stage 3a (principal); N39.0 Urinary tract infection, site not specified | CPT/HCPCS: 81000; 87086 ==

== ENCOUNTER → 2025-04-30 14:16 | Outpatient (BNVA) | payer OTHER, SELFPAY | PROVIDERS: PCP Nurse Practitioner; Visit Provider Nurse Practitioner | DX: N39.0 Urinary tract infection, site not specified (principal) | CPT/HCPCS: 87086 ==